=== PATIENT | male | born 1980 | race Caucasian/White ===

== ENCOUNTER 2019-01-23 19:35 | Emergency (ER) | payer OTHER ==
[2019-01-23] MEDS ORDERED: PROPARACAINE 0.5% 15 ML OPHT DROP OP ONE (19:58)
[2019-01-23] MEDS ORDERED: FLUORESCEIN SODIUM 1 MG STRIP OP ONE (19:59)
[2019-01-23] MEDS ORDERED: IBUPROFEN 800 MG TAB PO ONE (20:19)
[2019-01-23] MEDS ORDERED: HYDROCOD/APAP 5/325 PREPACK#6 BTL TAKEHOME ONE (20:19)
[2019-01-23] MEDS ORDERED: HYDROCODONE/APAP 5/325 TAB PO ONE (20:19)
[2019-01-23] MEDS ORDERED: SULFAMETHOX/TMP 800/160 MG 1 TAB PO ONE ×2 (20:25→20:26)
[2019-01-23] MEDS ORDERED: CEFDINIR 300 MG CAP PO ONE (20:25)
--- NOTE | 2019-01-23 20:40 | EDPHY ---
H & P Time Seen by Provider: 01/23/19 19:46 HPI/ROS: HPI Left eye swelling and pain. 38-year-old male by private vehicle. This patient has a history of what sounds like a sebaceous cyst medial brow ridge on the left side. He states that recently over the last couple of days it became bigger more swollen and red. Last night he took a pin and punctured the cyst area and reported some purulent drainage. He then woke up this morning with swelling involving his upper and lower lids and around his eyes. He denies any pain with extraocular movements. He denies any changes in vision. No headache. No fever. No rhinorrhea. ROS: Constitutional: No fever, no chills. No weakness. Eyes: No discharge. No changes in vision. As above. ENT: No sore throat. No nasal congestion or rhinorrhea. Respiratory: No cough. No shortness of breath. Musculoskeletal: No back pain. No neck pain. No myalgias or arthralgias. Skin: As above. Neurological: No headache. No focal weakness or altered sensation. Past medical history: No significant past medical history. He is allergic to amoxicillin and had a reaction when he was 18 to this medication. This was reported as hives and a sensation of his throat swelling. Social history: Smoker. Denies alcohol. Here by himself. He is . Works in sales. Physical Exam: General Appearance: Alert, no distress. This patient is responding to questions appropriately and in full sentences. This patient appears well- hydrated and well-nourished. Eyes: Pupils equal and round and reactive to light at 3-2 mm bilaterally. No photophobia. No nystagmus. The right eye is unremarkable on gross inspection. The left eye is significant for erythema and edema involving the upper and lower lids and periorbital tissues. The patient denies any diplopia. No changes in vision. There is no evidence of proptosis. No pain on extraocular movements. He has a tender fluctuant erythematous scabbed over swelling about 1.5 cm in diameter just below the medial brow ridge. Left eye-Arvizu lamp exam with fluorescein staining; no Lonny's sign, evidence of abrasion, ulceration or other abnormality. Slit-lamp exam; no hypopyon, no hyphema, anterior chamber is deep and clear, no cell/flare. ENT, Mouth: Mucous membranes are moist. The pharyngeal tissues are unremarkable. No edema or swelling. No asymmetry suggestive of abscess. No erythema or exudates. Neurological: Motor sensory function is grossly intact. Cranial nerves are normal. Gait is normal. Skin: Warm and dry, no rashes. Musculoskeletal: Neck is supple and nontender. Extremities are symmetrical. All joints range without pain or impingement. Psychiatric: No agitation. No depression. Database: EKG: Imaging: Procedures: Procedure: Abscess drainage. The patient's abscess/sebaceous cyst was located on the left medial inferior brow ridge. I obtained verbal consent from the patient to drain the abscess who was informed about the possibility of bleeding and pain. The abscess was incised with 11 blade. A 2-3 mm incision was made and a large amount of purulent drainage an gelatinous sebaceous cyst material was expressed. I irrigated the wound. There was no continued bleeding. Packing was not placed because of the approximation to the eye. The patient tolerated the procedure well. The procedure was performed by myself. Emergency department course: Triage vital signs reviewed. He is afebrile. Mildly hypertensive. Mildly tachycardic. The patient reports that he was very nervous on coming to the emergency department. His tachycardia has resolved. I discussed his diagnosis with him. His presentation is consistent with a preseptal cellulitis. I feel an orbital cellulitis/postseptal cellulitis is unlikely. He will be treated with IV ceftriaxone in the emergency department and started on Bactrim. After his incision and drainage procedure these medications were given to him and he also received 800 mg of ibuprofen and 2 [place] tablets for pain. Plan will be to send him home with prescriptions for Bactrim and cefdinir to be taken twice daily. He currently does not have a primary care physician but I will see him on Sunday morning here in the emergency department for close follow-up. Immediate return to emergency department precautions were reviewed with him thoroughly. He feels comfortable with this plan. All of his questions were answered. He was discharged from the emergency department in good condition. Differential Diagnosis: The differential diagnosis on this patient includes but is not limited to pre septal cellulitis, abscess/infected sebaceous cyst. Postseptal/orbital cellulitis unlikely. This represents a partial list of diagnoses considered. These considerations are based on history, physical exam, past history, reassessment and diagnostic testing. Smoking Status: Light smoker Constitutional: Initial Vital Signs Temperature (C) 37.0 C 01/23/19 19:45 Heart Rate 103 H 01/23/19 19:45 Respiratory Rate 16 01/23/19 19:45 Blood Pressure 141/100 H 01/23/19 19:45 O2 Sat (%) 97 01/23/19 19:45 O2 Delivery Mode Room Air Allergies/Adverse Reactions: amoxicillin Allergy (Intermediate, Verified 01/23/19 19:45) Swelling/neck,face,throat Home Medications: Medication Instructions Recorded Cefdinir [Omnicef (RX)] 300 mg PO BID 10 Days cap 01/23/19 Sulfamethox/Tmp 800/160 mg 1 tab PO BID@1000,2200 #20 tab 01/23/19 [Bactrim Ds] Medical Decision Making - Data Points Medications Given: Discontinued Medications Fluorescein Sodium (Bioglo) 1 mg OP EDNOW ONE Stop: 01/23/19 20:00 Last Admin: 01/23/19 20:21 Dose: Not Given Proparacaine HCl (Alcaine 0.5%) 1 drops OP EDNOW ONE Stop: 01/23/19 19:59 Last Admin: 01/23/19 20:21 Dose: Not Given Departure - Departure Disposition: Home, Routine, Self-Care Clinical Impression: Preseptal cellulitis of left eye, Abscess of face Condition: Good Instructions: Periorbital Cellulitis in Adults (ED), Abscess (ED) Additional Instructions: Read and follow provided instructions. You are to return to the emergency department as discussed on Sunday morning for re-evaluation. I have also provided you with a referral to [facility] to establish a primary care physician relationship. They are next door to the emergency department here. Call tomorrow morning to set up an appointment for early next week. It is very important that we follow your condition very closely. Take antibiotics as prescribed through entire course of treatment. Ibuprofen dosin mg every 6 hours with meals for the next 3 days only. Take only as needed for pain. Narcotic pain medication: 1-2 every 4-6 hours as needed for pain. Do not drive on this medication. Return to the emergency department immediately for worsening swelling, any sensation of protrusion of your eye, pain with movement of your eye ball, fever , headache or other serious concerns. Referrals: [facility] [Outside] - As per Instructions Prescriptions: Cefdinir [Omnicef (RX)] 300 mg PO BID 10 Days cap Sulfamethox/Tmp 800/160 mg [Bactrim Ds] 1 tab PO BID@1000,2200 #20 tab
[2019-01-23 21:22] VITALS: BP 136/90
== END 2019-01-23 21:19 | disposition home or self-care (01) ==
LOC: CED 19:35
PROC: 0H91XZZ Drainage of Face Skin, External Approach (ICD-10-PCS; principal; 2019-01-23)
DX: L03.213 Periorbital cellulitis (principal); L02.01 Cutaneous abscess of face
CPT/HCPCS: 99284-ER; J0696